=== PATIENT | female | born 1980 | race African-American/Black ===

== ENCOUNTER 2023-01-01 22:15 | Emergency (ER) | payer OTHER ==
[~2023-01-01] VITALS: Ht 172.7 cm; Wt 73.0 kg
[2023-01-01 22:51] LABS: BASOPHILS % 0.6 % (0.0-2.0); HEMATOCRIT. 34.5 % (36.0-48.0); HEMOGLOBIN. 11.2 g/dL (12.0-16.0); LYMPHOCYTES % 36.2 % (20.0-50.0); MEAN CORPUSCULAR HEMOGLOBIN 27.9 pg (28.0-32.0); MEAN CORPUSCULAR VOLUME 85.7 fL (81.0-99.0); MEAN PLATELET VOLUME 9.6 fl (7.4-10.4); MONOCYTES % 8.4 % (2.0-8.0); NEUTROPHILS % 53.8 % (40.0-76.0); PLATELET 221 x1000/uL (130-400); RED BLOOD CELL COUNT 4.02 mill/uL (4.2-5.4); RED CELL DISTRIBUTION WIDTH 13.5 % (11.6-14.6)
[2023-01-01 22:59] LABS: CHLORIDE 106 mEq/L (98-107)
[2023-01-02 00:49] VITALS: BP 106/66
[2023-01-02] MEDS ORDERED: IOHEXOL-350 100 ML BOTTLE ONE (04:32)
== END 2023-01-02 00:55 | disposition home or self-care (01) ==
LOC: ER 22:26 → EEVIPCON 22:26 → ER 01-02 00:55
DX: R07.9 Chest pain, unspecified (principal); D64.9 Anemia, unspecified; Z88.1 Allergy status to other antibiotic agents
CPT/HCPCS: 36415; 71045; 71275; 80053; 81025; 83880; 84484; 85025; 85379; 93005; 99285; Q9967